=== PATIENT | female | born 1960 | race Caucasian/White ===

== ENCOUNTER → 2016-04-08 | Outpatient (CLI) | payer BC ==
--- NOTE | 2016-04-08 16:20 | EKG ---
[address] [address] Measurements Intervals [place] Rate: 58 P: 49 AL: 187 QRS: 43 QRSD: 96 T: 54 QT: 405 QTc: 401 Interpretive Statements SINUS RHYTHM WITH SINUS ARRHYTHMIA Compared to ECG 02/20/2016 10:59:34 Sinus bradycardia no longer present Electronically Signed On 04-08-16 17:54:05 MST by Nate Manjarrez [email or web address]
== END ==
LOC: EKG 16:06
PROVIDERS: ATTEND Specialist
DX: I71.2 Thoracic aortic aneurysm, without rupture (principal); I30.9 Acute pericarditis, unspecified; I49.8 Other specified cardiac arrhythmias
CPT/HCPCS: 93005; 93010

== ENCOUNTER → 2016-04-18 | Outpatient (CLI) | payer BC ==
[2016-04-18 09:02] LABS: CREATININE 0.8 mg/dL (0.50-1.20); EST GLOMERULAR FILTRATION > 60 (>60 ml/min/1.73m(2))
--- NOTE | 2016-04-19 17:44 | DI ---
CT CHEST SCAN WITH IV CONTRAST, 04/18/2016 8:34 AM : Clinical History: Ascending aortic aneurysm. Previous Exam: 12/27/2015. Scans are performed from the base of the neck to the level of the adrenal glands with contrast. 70 ml of Isovue 300 was injected IV. The base of the neck and thoracic inlet are normal. There are no abnormal axillary, supraclavicular, mediastinal, or hilar nodes. The heart is normal. There is an ascending aortic aneurysm that measures 48 mm in diameter and has not changed in size. There is no evidence of a dissection of the aorta. Th ere is no acute infiltrate or effusion. There is a 3 mm diameter noncalcified nodule in the right upp er lobe, in the apical segment, and a second noncalcified nodule measuring 3 x 4 x 7 mm located in th e anterior aspect of the medial segment of the right middle lobe. Both of these lesions were present in retrospect on the previous study and have not changed. We now have 4 months of documented stabilit y of the lesions. If this patient is considered to be of low risk for developing lung cancer then a f ollowup noncontrast CT scan can be performed in approximately 8 months from today's date. If this pat ient is considered to be of high-risk for developing lung cancer, then a followup study can be perfor med in 6-8 months from today's date. The adrenal glands, spleen, and the visualized portions of the l iver and pancreas are normal. READIN. There is an ascending aortic aneurysm measuring 48 mm in diameter in both the AP and transverse m easurements, and this has remained unchanged from the prior study. 2. There are 2 pulmonary nodules that are not calcified. There is one in the apical segment of the r ight upper lobe and a second lesion in the medial segment of the right middle lobe. If this patient i s considered to be of low risk for developing lung cancer, then a noncontrast followup CT scan of the chest is recommended in 8 months from today's date. If the patient is considered to be of high-risk, then the study should be performed between 6-8 months from today's date.
== END ==
LOC: CT 08:27
PROVIDERS: ATTEND Specialist
DX: Z01.812 Encounter for preprocedural laboratory examination (principal); I30.9 Acute pericarditis, unspecified; I71.2 Thoracic aortic aneurysm, without rupture
CPT/HCPCS: 36415; 71260; 82565; 84520